=== PATIENT | male | born 1950 | race Caucasian/White ===

== ENCOUNTER 2017-06-24 07:37 | Inpatient (IN) ==
[2017-06-24] MEDS ORDERED: methylPREDNISolone 125 MG/2 ML VIAL IVP ONE (07:50)
[2017-06-24] MEDS ORDERED: ALBUTEROL SULFATE 2.5 MG/3 ML NEB ONE (07:50)
[2017-06-24] MEDS ORDERED: Sodium Chloride 0.9% 1,000 ML PRIMARY IV ONE (07:53)
--- NOTE | 2017-06-24 07:54 | EKG ---
[address] [address] Measurements Intervals [place] Rate: 102 P: 41 CT: 150 QRS: 28 QRSD: 80 T: 50 QT: 314 QTc: 373 Interpretive Statements SINUS TACHYCARDIA ABNORMAL RHYTHM ECG Compared to ECG 06/24/2017 03:25:01 Sinus rhythm no longer present Electronically Signed On 06-24-17 08:38:31 MDT by Shane Alonso MD [email or web address]
[2017-06-24 07:57] LABS: BASOPHILS # (AUTO) 0.03 10*3/UL; BASOPHILS % (AUTO) 0.3 % (0-1); EOSINOPHILS # (AUTO) 0.05 10*3/UL; EOSINOPHILS % (AUTO) 0.6 % (0-8); Hematocrit [HCT] 32.6 % (42.0-52.0); Hemoglobin [HGB] 10.2 g/dL (14.0-18.0); LYMPHOCYTES # (AUTO) 0.84 10*3/uL; MEAN CORPUSCULAR HEMOGLOBIN 27.5 PG (27-31); MEAN CORPUSCULAR HGB CONC 31.3 g/dL (33-37); MEAN CORPUSCULAR VOLUME 87.9 FL (80-90); MEAN PLATELET VOLUME 8.8 FL (7.4-12.2); MONOCYTES # (AUTO) 1.06 10*3/UL (0.3-0.8); MONOCYTES % (AUTO) 12.3 % (5-15); NEUTROPHILS # (AUTO) 6.57 10*3/UL; NEUTROPHILS % (AUTO) 76.4 % (50-80); RED BLOOD COUNT 3.71 10^6/uL (4.70-6.10)
[2017-06-24 08:03] LABS: BLOOD UREA NITROGEN 30 mg/dL (7-22); BUN/CREATININE RATIO 33.33 (6-20)
--- NOTE | 2017-06-24 08:06 | PDOC ---
General Adult HPI - General Chief Complaint: Respiratory Complaint Stated Complaint: vomiting, low sat Date Seen by Provider: 06/24/17 Time Seen by Provider: 07:52 Source: POSITIVE: Patient, EMS, skilled nursing records Exam Limitations: POSITIVE: Clinical condition Nurse's Notes Reviewed & Considered: Yes EMS Report Reviewed & Considered: Verbal - History of Present Illness Initial Comment: The patient is a 66-year-old male who is brought to the emergency department by ambulance from the [facility] with complaints of vomiting and low oxygen saturation. He was just seen in the emergency department earlier this morning after he had slid out of the chair and was complaining of left hip pain. He had some wheezes during his initial presentation and workup was completed including venous blood gas, blood cultures, lactate, chest x-ray and x-ray of his hip. The x-ray of his hip was found to be negative for fracture. He was just discharged from the hospital in [place] yesterday where he had been treated for 1 week with pneumonia and cellulitis. He is still on antibiotics for this. He was discharged back to the snf with a prescription for [place] for pain. Apparently he started having some vomiting there and his oxygen saturations went down. He was given an albuterol neb treatment there. EMS was called. When they arrived his oxygen saturations were in the 70s on oxygen. He had increased rhonchi and wheezes and was given a duo neb in route. Have you received a tetanus shot in the past 10 years?: Unknown - Patient Home Medications Home Medications: Home Medications Albuterol Neb Soln 0.083% 2.5 mg INH PRN 06/24/17 Aripiprazole 10 mg PO BID 06/24/17 Cefuroxime Axetil [Ceftin] 500 mg PO BID 06/24/17 Citalopram Hydrobromide [Citalopram HBr] 20 mg PO DAILY 06/24/17 Famotidine 20 mg PO BID 06/24/17 Furosemide [Lasix] 40 mg PO DAILY 06/24/17 Gabapentin 300 mg PO TID 06/24/17 Guaifenesin [Mucinex] 600 mg PO BID 06/24/17 HYDROcodone/APAP 5/325 Tab [[place] 5/325 Tab] 1 ea PO Q6H PRN #30 tab 06/24/17 Ipratropium/Albuterol Sulfate [Iprat-Albut 0.5-3(2.5) mg/3 ml] 3 ml IH PRN 06/24 Lactulose 10 gm PO BID 06/24/17 Lidocaine [Anecream] 30 gm TP DAILY 06/24/17 QUEtiapine Tab [SEROquel Tab] 25 mg PO BID 06/24/17 Rivaroxaban [Xarelto] 10 mg PO DAILY 06/24/17 Spironolactone 25 mg PO DAILY 06/24/17 Sulfameth/Trimeth 800/160 Tab [Bactrim DS 800/160 Tab] 1 ea PO BID 06/24/17 - Patient Allergies Allergies/Adverse Reactions: Allergies 3 Allergy/AdvReac Type Severity Reaction Status Date / Time haloperidol [From Haldol] Allergy NOT Verified 06/24/17 09:22 APPLICABLE Past Medical History - heen HEENT History: Denies History Cardiovascular History: Hypertension, DVTs Additional Cardiovasular History: DVT IN LEFT LEG X 2 Respiratory History: Pneumonia Gastrointestinal History: Denies History Genitourinary History: Other (please comment) Additional Genitourinary History: PT HAS INDWELLING CARROLL, UNSURE OF REASON Endocrine History: Denies History Musculoskeletal History: Other (please comment) Additional Musculoskeletal History: CHRONIC NECK PAIN, CHRONIC HIP PAIN Neurological History: Denies History Blood Disorders: Anemia Psychiatric History: Bi Polar Disorder, Schizophrenia History of Sexually Transmitted Diseases: No Cancer History: Denies History In Past Year Been Physically Harmed or Verbally Threatened: No History of MDRO: No History of Other Communicable Diseases: No Tobacco Use: Unknown If Ever Smoked In the Past 12 Months, Have Used or Abuse Any Substance: None Previous Surgical History: Yes Type / Date of Surgery: STATES HE HAD CERVICAL FUSION A MONTH AGO, NOTHING LISTED IN MEDICAL RECORDS FROM [facility]. RIGHT KNEE SURGERY Significant Family History: No pertinent family hx Past Medical History Reviewed: Reviewed - No Changes ROS - Limitations ROS Limitations: Clinical Condition Cardiovascular: DENIES: Chest Pain Respiratory: REPORTS: Shortness Of Breath, Wheezing Neurological: REPORTS: Confusion Gastrointestinal: REPORTS: Nausea, Vomitting Musculoskeletal: REPORTS: Other (Left hip pain) General Adult Exam - General Appearance General Appearance: POSITIVE: Other (The patient is awake however he is less responsive than he was earlier this morning. He appears chronically ill.) - HEENT HEENT: POSITIVE: Head Inspection Nml (He has some erythematous rash on his cheek and chin, he has been diagnosed with psoriasis however this also has the appearance of ringworm), Eyes Inspection Nml, Ears Inspection Nml, Nose Inspection Nml, PERRL, EOMI - Neck Neck: POSITIVE: Normal Inspection. NEGATIVE: Lymphadenopathy - Respiratory Respiratory: POSITIVE: Other (Respirations are slightly labored and he does exhibit bilateral rhonchi with expiratory wheezes) - Cardiovascular Cardiovascular: POSITIVE: Regular Rate & Rhythm, No Murmur Peripheral Pulses: Dorsalis-pedis (R): 2+, Dorsalis-pedis (L): 2+ - Abdomen Abdomen: Soft: (All Quadrants), Denies Tenderness: (All Quadrants), Distention: (All Quadrants) - Extremities Extremity: Normal ROM: (All Extremities) Additional Extremities Details: He does have significant chronic venous stasis changes in the lower extremities bilaterally with some edema bilaterally in both legs. He also has some erythema around the buttocks. - Neurological / Psychological Neurological: POSITIVE: Other (No focal neurologic deficits) General Adult Progress - Results Reviewed by me Radiology Findings: CTA of the chest attempted, suboptimal secondary to motion artifact. Lab Results Reviewed by Me: Yes CBC and BMP: 06/24/17 07:45 06/24/17 07:45 EKG Interpreted/Reviewed By Me:: Yes EKG Interpretation:: POSITIVE: Normal Sinus Rhythm, Normal Rate, Normal QRS, Normal ST/T - Patient's Progress MDM / ED Course: A repeat venous blood gas was done shortly after the patient's arrival and he was found to be slightly acidotic with pH of 7.25 down from 7.35 earlier this morning. His PCO2 had gone from the low 50s to low 60s. He was placed on Bipap. Blood cultures and lactate had just been drawn several hours ago and were not repeated. EKG was repeated and shows normal sinus rhythm with no acute ST segment changes. Repeat chest x-ray, troponin, CBC and BMP were ordered. He was given a repeat albuterol neb treatment and Solu-Medrol 125 mg IV. The patient is discussed with Dr. Mendiola. He recommended CTA and treatment with flagyl and rocephin. CTA was performed however was suboptimal secondary to motion artifact. The patient is being admitted per Dr Mendiola. - Consult Counseled: POSITIVE: Patient, RE: Lab Results, RE: Radiology Results, RE: DX Patient Care Time - Estimated PCT Patient Care Time (In Minutes): 40 Vital Signs - Recent Vital Signs Vital Signs: Vital Signs (Last 8 hours) Temp Pulse Pulse Resp BP Pulse Ox 06/24/17 08:11 99 F 99 24 152/77 99 06/24/17 08:07 96 20 06/24/17 08:06 97 20 93 - VS Reviewed Vital Signs Reviewed: Yes Discharge Clinical Impression: History of DVT (deep vein thrombosis), Pneumonia, Respiratory acidosis, COPD ( chronic obstructive pulmonary disease), Aspiration into airway Discharge Disposition: Admit to Inpatient Condition: Serious Follow Up With: HARMEET HOLLINGSWORTH [Primary Care Provider] - Date Decision to Admit to Inpatient: 06/24/17 Time Decision to Admit to Inpatient: 09:10
[2017-06-24 08:09] LABS: PLATELET MORPHOLOGY COMMENT NORMAL MORPHOLOGY (NORM); RBC MORPHOLOGY COMMENT NORMAL MORPHOLOGY (NORM); WBC MORPHOLOGY COMMENT NORMAL MORPHOLOGY (NORM)
[2017-06-24] MEDS ORDERED: metroNIDAZOLE 500mg (Premix) 500 MG/100 ML BAG IV ONE (08:21)
[2017-06-24] MEDS ORDERED: cefTRIAXone Inj 2 GM in Sodium Chloride 0.9% 100 ML IV ONE (08:21)
[2017-06-24 08:58] LABS: VENOUS PH 7.24 (7.32-7.42)
--- NOTE | 2017-06-24 09:28 | DI ---
CT CTA Chest Non-Coronary WWO,06/24/2017 8:20 AM: Clinical History: Shortness of breath and elevated d-dimer. Previous Exam: None at this facility. Findings: Likely acquired CT images are obtained through the chest following intravenous administration of 75 c c of [id number]. Images are extremely limited due to motion artifact. There is question of filling de fects within the left lower lobe pulmonary arteries and there is airspace disease within the left low er lobe. This is worrisome for pulmonary embolism. There is a small hiatal hernia noted. Impression: Probable pulmonary emboli within the lung bases bilaterally with some reactive atelectasis in the lef t lung base.
[2017-06-24 10:50] LABS: VENOUS PCO2 52.4 mmHg (45-55); VENOUS PH 7.349 (7.32-7.42)
[2017-06-24] MEDS ORDERED: LIDOCAINE W/ SODIUM BICARB 0.5 ML SYR SUBD PRN (10:53)
[2017-06-24] MEDS ORDERED: Vancomycin-PHA to Dose IV PRN (10:53)
[2017-06-24] MEDS ORDERED: ALBUTEROL SULFATE 2.5 MG/3 ML NEB SCH (11:00)
[2017-06-24] MEDS ORDERED: ALBUTEROL SULFATE 2.5 MG/3 ML NEB PRN ×2 (11:05→11:30)
[2017-06-24] MEDS ORDERED: ONDANSETRON 4 MG/2 ML VIAL IVP PRN (11:13)
--- NOTE | 2017-06-24 11:14 | PDOC ---
HPI - History of Present Illness Date of Service: 06/24/17 Chief Complaint: Vomiting and decreased oxygen saturation History of Present Illness: This is a 66 years old male with medical history significant for history of hypertension, schizoaffective disorder and recent admission to [facility] for pneumonia and cellulitis apparently was treated there and because of his weakness it was determined that he needs to continue physical therapy and maybe long-term placement in [facility] and he was admitted to [place] [facility] [facility] yesterday. Apparently he slid out of his recliner last night he was complaining from left hip pain and he was brought to the hospital. X-ray was negative for fracture he was giving Weston also some morphine and was discharged back to the [facility]. However he's was brought back to the ER from the [facility] as apparently he vomited and his saturation dropped. He was put on nonrebreather initially and then he was put on BiPAP as he is retaining CO2 he was given antibiotics and had a CT of the chest there is question of PE and was admitted. No meaningful information can be obtained from the patient himself as he is very lethargic. His brother was with him the brother said the patient had a complicated history apparently he was weak and was not doing well last November was admitted to [facility] and from there he went to [facility] and then from there to [place] and they told him that he need to have a neck surgery however he declined and went back to [facility] and had surgery of the neck there. Sounded like he had some degenerative neck disease he stayed there on rehabilitation until April was discharged from the hospital however was readmitted to [facility] for brief period of time. He stayed home for maybe 3 weeks and ended up again with pneumonia. This time they determined that he needs the fdc placement and since he doesn't have anybody there and his brother lives in [place] he was transferred here. The patient brother said that the patient is known for not taking his medications. He is not sure what medication he is supposed to be on but he knows he need to be on diuretics and the he doesn't take them as instructed. Past Medical History Medical History: 1. Hypertension. 2. The schizoaffective disorder. 3. Recent admission to [facility] for pneumonia and cellulitis. 4. Patient is on Xarelto unclear reason Surgical History: 1. Recent neck surgery. 2. Right knee replacement Family History: Reviewed an Not Pertinent Past Social History: Used to smoke, lives by himself in [place] and moved just yesterday to the fdc here in [place]. Not sure about alcohol intake. Tobacco Use: Unknown If Ever Smoked In the Past 12 Months, Have Used or Abuse Any of the Following Substance: None Medication / Allergies Home Medications: Home Medications 3 Medication Instructions Recorded Confirmed Type Albuterol Neb Soln 0.083% 2.5 mg INH PRN 06/24/17 06/24/17 History Aripiprazole 10 mg PO BID 06/24/17 06/24/17 History Cefuroxime Axetil [Ceftin] 500 mg PO BID 06/24/17 06/24/17 History Citalopram Hydrobromide 20 mg PO DAILY 06/24/17 06/24/17 History [Citalopram HBr] Famotidine 20 mg PO BID 06/24/17 06/24/17 History Furosemide [Lasix] 40 mg PO DAILY 06/24/17 06/24/17 History Gabapentin 300 mg PO TID 06/24/17 06/24/17 History Guaifenesin [Mucinex] 600 mg PO BID 06/24/17 06/24/17 History HYDROcodone/APAP 5/325 Tab [[place] 1 ea PO Q6H PRN #30 tab 06/24/17 06/24/17 Rx 5/325 Tab] Ipratropium/Albuterol Sulfate 3 ml IH PRN 06/24/17 06/24/17 History [Iprat-Albut 0.5-3(2.5) mg/3 ml] Lactulose 10 gm PO BID 06/24/17 06/24/17 History Lidocaine [Anecream] 30 gm TP DAILY 06/24/17 06/24/17 History QUEtiapine Tab [SEROquel Tab] 25 mg PO BID 06/24/17 06/24/17 History Rivaroxaban [Xarelto] 10 mg PO DAILY 06/24/17 06/24/17 History Spironolactone 25 mg PO DAILY 06/24/17 06/24/17 History Sulfameth/Trimeth 800/160 Tab 1 ea PO BID 06/24/17 06/24/17 History [Bactrim DS 800/160 Tab] Allergies/Adverse Reactions: Allergies 3 Allergy/AdvReac Type Severity Reaction Status Date / Time haloperidol [From Haldol] Allergy NOT Verified 06/24/17 10:08 APPLICABLE Review of Systems - Review of Systems ROS Unobtainable: Due to Mental Status Exam - Vitals Vital Signs: Vital Signs Temperature 97.8 F Temperature Source Temporal Artery Scan Pulse Rate [Pulse Oximeter 86 Right] Pulse Rate 99 Respiratory Rate 18 Blood Pressure [Left Radial 132/71 Artery] Blood Pressure 134/76 Pulse Ox 96 Oxygen Flow Rate 40 Oxygen Delivery Method Bi-PAP Height 5 ft 5.75 in Weight 252 lb - General General Appearance: Morbidly Obese Additional General Exam Details: Very sleepy with the opening his eyes in response to vigorous stimuli but doesn' t follow commands - Head Head Exam: Normal Inspection - Eye Eye Exam: POSITIVE: Normal Appearance - ENT ENT Exam: POSITIVE: Normal Exam - Respiratory Additional Respiratory Exam Details: Bilateral wheezing mostly on the right side here. Decreased air entry. - Cardiovascular Cardiovascular Exam: POSITIVE: RRR - GI/Abdominal GI/Abdominal Exam: POSITIVE: Normal Bowel Sounds, Non Tender, Non Distended, Soft, No Organomegaly - Rectal Rectal Exam: POSITIVE: Deferred - External Exam: POSITIVE: Deferred - Extremities Additional Extremities Exam Details: Chronic dermatitic changes noted in both legs. - Neurological Additional Neurological Exam Details: Very sleepy does not follow commands. Withdrawal response to stimuli. - Integumentary Additional Integumentary Exam Details: Chronic dermatitic changes noted in both lower extremities Results - Labs CBC and BMP: 06/24/17 07:45 06/24/17 07:45 - EKG Data -: EKG Interpreted by Me Rate: Tachycardia - EKG Data EKG Interpretation: Other (EKG shows sinus tachycardia) - Imaging Status: Report Reviewed by Me (CT chest Probable pulmonary emboli within the lung bases bilaterally with some reactive atelectasis in the left lung base.) Assessment and Plan - Patient Problems (1) Acute and chronic respiratory failure Current Visit: Yes Status: Acute Comment: He is on BiPAP now we did recheck his carbon dioxide and it is coming down. Suspect that he has a underlying COPD as he used to smoke, I think there may be evidence of pneumonia as possibly patient aspirated. I think will put him on Zosyn and vancomycin now. He is wheezing will put him on the breathing treatment and some steroid. Code(s): J96.20 - Acute and chronic respiratory failure, unspecified whether with hypoxia or hypercapnia (2) Pulmonary emboli Current Visit: Yes Status: Acute Comment: There is a question of PE on the CT, patient is on Xarelto for unknown reason the ER physician thought that he had a history of DVT and I could not find this on his note. I think will put him on Lovenox once we know when was the last time he had the Xarelto. It's possibly he is not taking his medications as prescribed based on what his brother said and that's why he ended up with a PE. Code(s): I26.99 - Other pulmonary embolism without acute cor pulmonale (3) Schizoaffective disorder Current Visit: Yes Status: Acute Comment: Once he is more awake we will restart his medications Code(s): F25.9 - Schizoaffective disorder, unspecified
[2017-06-24] MEDS: Piperacillin/Tazobactam Inj 3.375 GM in Sodium Chloride 0.9% 100 ML IV SCH ×3 (11:57→22:34)
[2017-06-24] MEDS: PANTOPRAZOLE IV 40 MG VIAL IVP SCH (11:58)
[2017-06-24] MEDS: Sodium Chloride 0.9% 1,000 ML PRIMARY IV SCH (12:27)
[2017-06-24] MEDS: ENOXAPARIN SODIUM 120 MG/0.8 ML SYRINGE SUBCUT SCH (13:54)
[2017-06-24] MEDS: methylPREDNISolone 40 MG/1 ML VIAL IVP SCH ×2 (13:54→22:34)
[2017-06-24] MEDS: IPRATROPIUM/ALBUTEROL SULFATE 3 ML NEB NEB SCH ×2 (17:00→19:40)
[2017-06-24] MEDS ORDERED: ENOXAPARIN SODIUM 120 MG/0.8 ML SYRINGE SUBCUT SCH (20:00)
[2017-06-24] MEDS: ARIPIPRAZOLE 10 MG PO SCH (20:31)
[2017-06-24] MEDS: GUAIFENESIN 600 MG TABLET PO SCH (20:31)
[2017-06-24] MEDS: QUEtiapine Tab 25 MG TAB PO SCH (20:31)
[2017-06-25] MEDS: ENOXAPARIN SODIUM 120 MG/0.8 ML SYRINGE SUBCUT SCH ×2 (01:10→13:34)
[2017-06-25] MEDS ORDERED: LORazepam 2 MG/1 ML VIAL IVP ONE ×3 (02:24→21:58)
[2017-06-25] MEDS: LORazepam 2 MG/1 ML VIAL IVP PRN ×3 (03:06→21:07)
[2017-06-25 06:30] LABS: BASOPHILS # (AUTO) 0 10*3/UL; BASOPHILS % (AUTO) 0 % (0-1); EOSINOPHILS # (AUTO) 0 10*3/UL; EOSINOPHILS % (AUTO) 0 % (0-8); Hematocrit [HCT] 32.3 % (42.0-52.0); Hemoglobin [HGB] 9.7 g/dL (14.0-18.0); LYMPHOCYTES # (AUTO) 0.44 10*3/uL; MEAN CORPUSCULAR HEMOGLOBIN 26.6 PG (27-31); MEAN CORPUSCULAR VOLUME 88.7 FL (80-90); MEAN PLATELET VOLUME 9.2 FL (7.4-12.2); MONOCYTES # (AUTO) 0.22 10*3/UL (0.3-0.8); MONOCYTES % (AUTO) 2.6 % (5-15); NEUTROPHILS # (AUTO) 7.68 10*3/UL; NEUTROPHILS % (AUTO) 91.7 % (50-80); RED BLOOD COUNT 3.64 10^6/uL (4.70-6.10)
[2017-06-25 06:47] LABS: PLATELET MORPHOLOGY COMMENT NORMAL MORPHOLOGY (NORM); RBC MORPHOLOGY COMMENT NORMAL MORPHOLOGY (NORM); WBC MORPHOLOGY COMMENT NORMAL MORPHOLOGY (NORM)
[2017-06-25] MEDS: IPRATROPIUM/ALBUTEROL SULFATE 3 ML NEB NEB SCH ×4 (06:47→19:31)
[2017-06-25 06:53] LABS: BLOOD UREA NITROGEN 34 mg/dL (7-22)
--- NOTE | 2017-06-25 08:34 | PDOC(PROG) ---
Date and Time of Service: 06/25/2017 8:33 AM Interval History: Subjective As I said in my note patient did wake up during the day was cooperative until around 10 PM he became uncooperative with the staff not following the instructions to keep his oxygen mask/cannula. I came and talked to him and he changed his mind and became cooperative with them until 1:30 AM when he started to be uncooperative I came in again there was no reasoning with him. He just doesn't want to wear his oxygen. His oxygen were dropping to the 60s and 70s. He was just uncooperative and angry. I called his brother and his daughter. His brother came and tried to reason with him however that didn't work. I did speak to his the power of employment law attorney his daughter and we made his status DO NOT RESUSCITATE which he did clearly state when he was awak. apparently he had some paperwork that's indicated that per his brother. Then we had to give him Ativan to calm him down and then we were able to put him back on the oxygen and on the BiPAP. This morning he is a lethargic would wake up in response to stimuli but he would not follow commands. We did repeat his the blood gas did show CO2 retention apparently he was taking off the BiPAP after the breathing treatment and had to put him back now since he is a retaining more CO2 and more lethargic. No meaningful information can be obtained from the patient Objective : Data - Labs CBC and BMP: 06/25/17 04:15 06/25/17 04:15 Objective : Exam - General General Appearance: Obese Additional General Exam Details: Patient is very lethargic. With open his eyes in response to stimuli does not follow commands though. - Head Head Exam: Normal Inspection - Eye Eye Exam: Normal Appearance - ENT ENT Exam: Normal Exam - Respiratory Additional Respiratory Exam Details: Bilateral wheezes heard - Cardiovascular Cardiovascular Exam: RRR - GI/Abdominal GI/Abdominal Exam: Normal Bowel Sounds, Non Tender, Non Distended, Soft, No Organomegaly - Rectal Rectal Exam: Deferred - External Exam: Deferred - Extremities Additional Extremities Exam Details: Stasis dermatitis noted in the legs. - Neurological Additional Neurological Exam Details: Very lethargic with wake up in response to the vigorous and the verbal stimuli but we go back to sleep does not follow commands. Assessment and Plan - Patient Problems (1) Acute and chronic respiratory failure Current Visit: Yes Status: Acute Comment: Yesterday he did respond to BiPAP however he became angry uncooperative and removing his oxygen cannula/ mask after waking up. As per my note we had to give him some Ativan and now he is back respiratory failure and he is back on BiPAP. We'll continue with the steroid and the antibiotics continue with Lovenox for PE. Continue breathing treatment. I elected to give him broad coverage because of his recent admission to another hospital. We put him on Vanco and Zosyn. The reason for his respiratory failure is multifactorial part of this is probably secondary to infection is question of for PE also. I suspect he also have underlying COPD. also possible underlying sleep apnea. Code(s): J96.20 - Acute and chronic respiratory failure, unspecified whether with hypoxia or hypercapnia (2) Pulmonary emboli Current Visit: Yes Status: Acute Comment: We put him on Lovenox. Code(s): I26.99 - Other pulmonary embolism without acute cor pulmonale (3) Schizoaffective disorder Current Visit: Yes Status: Acute Comment: He did take his pills last night after waking up however he's too sleepy to take any medications today. Will use Ativan as needed for agitation. The behavior from yesterday is unclear to me whether this is a result of his underlying psychiatric disorder or personality. In the past he seemed to go from hospital to hospital and at times refused treatment by physician so what happened last night may fit into being part of his personality. He did not appear to be delirious he was just uncooperative. I was unsure whether the the steroid played part in worsening his behavior so I cut back on the dosage of the steroid. Code(s): F25.9 - Schizoaffective disorder, unspecified
[2017-06-25 08:41] LABS: VENOUS PH 7.23 (7.32-7.42)
[2017-06-25] MEDS ORDERED: Vancomycin-PHA to Dose IV PRN (08:45)
[2017-06-25] MEDS ORDERED: methylPREDNISolone 40 MG/1 ML VIAL IVP SCH ×2 (09:00→21:00)
[2017-06-25] MEDS ORDERED: CITALOPRAM 20 MG TABLET PO SCH (09:00)
[2017-06-25] MEDS: Piperacillin/Tazobactam Inj 3.375 GM in Sodium Chloride 0.9% 100 ML IV SCH ×3 (09:01→20:07)
[2017-06-25] MEDS: GUAIFENESIN 600 MG TABLET PO SCH ×2 (09:36→20:07)
[2017-06-25] MEDS: ARIPIPRAZOLE 10 MG PO SCH ×2 (09:36→20:07)
[2017-06-25] MEDS: Spironolactone Tab 25 MG TAB PO SCH (09:36)
[2017-06-25] MEDS: FUROSEMIDE 40 MG TABLET PO SCH (09:36)
[2017-06-25] MEDS: QUEtiapine Tab 25 MG TAB PO SCH ×2 (09:37→20:07)
[2017-06-25] MEDS: PANTOPRAZOLE IV 40 MG VIAL IVP SCH (10:00)
[2017-06-25 11:07] LABS: VENOUS PH 7.24 (7.32-7.42)
[2017-06-25 13:37] LABS: VENOUS PH 7.24 (7.32-7.42)
[2017-06-25 18:17] LABS: VENOUS PH 7.42 (7.32-7.42)
[2017-06-25] MEDS: BUDESONIDE 0.5 MG/2 ML NEB SCH (19:32)
[2017-06-25] MEDS ORDERED: LORazepam 2 MG/1 ML VIAL IM ONE (21:35)
[2017-06-26 00:43] LABS: VENOUS PH 7.22 (7.32-7.42)
[2017-06-26] MEDS ORDERED: Vancomycin Inj 1gm vial ONE (00:43)
[2017-06-26] MEDS: ENOXAPARIN SODIUM 120 MG/0.8 ML SYRINGE SUBCUT SCH (00:44)
[2017-06-26 03:23] LABS: BASOPHILS # (AUTO) 0.01 10*3/UL; BASOPHILS % (AUTO) 0.1 % (0-1); EOSINOPHILS # (AUTO) 0 10*3/UL; EOSINOPHILS % (AUTO) 0 % (0-8); Hematocrit [HCT] 31.4 % (42.0-52.0); Hemoglobin [HGB] 9.5 g/dL (14.0-18.0); MEAN CORPUSCULAR HEMOGLOBIN 27.8 PG (27-31); MEAN CORPUSCULAR HGB CONC 30.3 g/dL (33-37); MEAN CORPUSCULAR VOLUME 91.8 FL (80-90); MEAN PLATELET VOLUME 8.6 FL (7.4-12.2); MONOCYTES # (AUTO) 0.81 10*3/UL (0.3-0.8); MONOCYTES % (AUTO) 7.2 % (5-15); NEUTROPHILS # (AUTO) 9.94 10*3/UL; RED BLOOD COUNT 3.42 10^6/uL (4.70-6.10)
[2017-06-26 03:38] LABS: BLOOD UREA NITROGEN 26 mg/dL (7-22); BUN/CREATININE RATIO 37.14 (6-20); PLATELET MORPHOLOGY COMMENT NORMAL MORPHOLOGY (NORM); RBC MORPHOLOGY COMMENT NORMAL MORPHOLOGY (NORM); SERUM ALBUMIN 3.3 g/dL (3.5-4.8); WBC MORPHOLOGY COMMENT NORMAL MORPHOLOGY (NORM)
[2017-06-26] MEDS: Piperacillin/Tazobactam Inj 3.375 GM in Sodium Chloride 0.9% 100 ML IV SCH (03:41)
[2017-06-26] MEDS: Sodium Chloride 0.9% 1,000 ML PRIMARY IV SCH (04:03)
[2017-06-26] MEDS: LORazepam 2 MG/1 ML VIAL IVP PRN ×3 (04:49→10:22)
[2017-06-26 05:40] LABS: VENOUS PH 7.19 (7.32-7.42)
[2017-06-26] MEDS: BUDESONIDE 0.5 MG/2 ML NEB SCH (06:16)
[2017-06-26] MEDS: IPRATROPIUM/ALBUTEROL SULFATE 3 ML NEB NEB SCH (06:17)
[2017-06-26 07:12] VITALS: BP 129/79; RESP 22; TEMP 97
--- NOTE | 2017-06-26 07:20 | PDOC(PROG) ---
Date and Time of Service: 06/26/2017 7:21 AM Interval History: Subjective Patient is lethargic, last night he woke up again became uncooperative violent towards the staff kicking and screaming had to give him Ativan again to calm him down. He had lots of secretions that we suctioned. Torres to put him back on the BiPAP which he seems to to tolerate. However his blood gas continued to progressively get worse. I did speak with both his daughter and his the brother. The daughter Darleen is the power of real estate attorney after discussion with her about his progressive respiratory failure we decided to put the patient on comfort care, D/C antibiotics, lovenox and IV fluid will DC the BiPAP and will put him on morphine and Ativan as needed Objective : Data - Labs CBC and BMP: 06/26/17 03:10 06/26/17 03:10 Objective : Exam - General Additional General Exam Details: Patient is very lethargic and does not follow commands barely able to open his eyes - Head Head Exam: Normal Inspection - Respiratory Respiratory Exam: Clear to Auscultation - Bilaterally Additional Respiratory Exam Details: Bilateral expiratory wheezes. - Cardiovascular Cardiovascular Exam: RRR - GI/Abdominal GI/Abdominal Exam: Normal Bowel Sounds, Non Tender, Non Distended, Soft - Rectal Rectal Exam: Deferred - External Exam: Deferred - Extremities Additional Extremities Exam Details: Stasis dermatitis noted - Neurological Additional Neurological Exam Details: Patient is very lethargic minimal spontaneous movement. Assessment and Plan - Patient Problems (1) Acute and chronic respiratory failure Current Visit: Yes Status: Acute Comment: Patient is with progressive respiratory failure unresponsive to the noninvasive ventilation and he is DO NOT RESUSCITATE DO NOT INTUBATE, likely the failure is multifactorial including aspiration and the PE plus underlying COPD exacerbation will DC per my discussion with the family treatment and put him on comfort care. Code(s): J96.20 - Acute and chronic respiratory failure, unspecified whether with hypoxia or hypercapnia
[2017-06-26] MEDS ORDERED: MORPHINE SULFATE 2 MG/1 ML IVP ONE (07:26)
[2017-06-26] MEDS ORDERED: Morphine Syringe 300mg/30ml 300 MG/30 ML PCA.SYRING IV SCH (07:30)
[2017-06-26] MEDS: Spironolactone Tab 25 MG TAB PO SCH (08:35)
[2017-06-26] MEDS: FUROSEMIDE 40 MG TABLET PO SCH (08:36)
[2017-06-26 16:33] VITALS: O2SAT 83
--- NOTE | 2017-06-27 07:58 | DCSUMMARY ---
Hospitalization Summary Admit Date: 06/24/2017 Discharge Date: 06/27/17 Hospital Course: diagnoses 1. Acute Hypercapnic respiratory failure 2. Probable aspiration pneumonia 3. Possible PE 4. Sleep apnea 5. COPD exacerbation 6. Hypertension 7. Schizoaffective disorder 8. Recent admission to [facility] for pneumonia and cellulitis 9. Obesity Hospital course This is a 66 years old male with medical history significant for history of hypertension, schizoaffective disorder and recent admission to [facility] for pneumonia and cellulitis apparently stayed there from the of this month and because of his weakness it was determined that he need to continue physical therapy maybe long-term placement in [facility] so he was admitted to [facility] the day before admission. Apparently he slid out of his recliner the night before admission and was complaining from left hip pain and was brought to the hospital for evaluation. X-ray was negative for fracture he was given [place] and also morphine and was discharged back to [facility]. However he was brought back to the ER from the [facility] as apparently he vomited and his saturation dropped. Initially he was put on nonrebreather and then switched to BiPAP as the venous blood gas showed CO2 retention. He was given antibiotics and had CT of the chest which raised possibility of PE and was admitted. When I saw him initially no meaningful information could be obtained from the patient as he was very lethargic. His brother was with him and the brother said that the patient had a complicated history. Apparently he was weak and was not doing well last November so he was admitted to [facility] and from there he went to [facility] and then from there to [place] and was told that he need to have a neck surgery however he declined to have it in [place] and went back to [facility] and had surgery of the neck there. The issue sounded to be a degenerative disc disease he stayed on rehabilitation there until April. Was discharged from the hospital however he was readmitted to [facility] for brief period of time. He stayed home maybe 3-4 weeks but ended up again in the hospital for pneumonia. This time it was determined that he needed [facility] placement and since he doesn't have anybody there and his brother lives in [place] was transferred here. The patient said that the patient is known for not taking his medication. He is not sure what medication he is supposed to be on but he knows he needs to be on a diuretic and he doesn't take them as instructed. Initially when I saw him as I said he was in respiratory failure which is probably multifactorial in etiology, thought maybe that secondary to COPD exacerbation, pneumonia maybe aspiration and possible PE. Though he was on Xarelto reason is not clear although the ER physician reported that he had a history of DVT. Since the patient is known not to take his medication I thought maybe the PEs a result of him not taking his medication so we put him on Lovenox. Few hours after the admission the patient started to wake up so we where able to take him off the BiPAP and he was cooperative with the staff however late that night he became uncooperative and angry and I came in to talk to him and after talking to him he changed his tone and said he will cooperate with the staff. However a few hours after that in the rope silica machine operator of the he became again uncooperative pulling his oxygen yelling and refusing to put his oxygen back on. I came to talk to him however there was no reasoning with him. I talked his brother to see whether he can come in and reason with him he couldn't. Patient started calling the police who came in and tried to reason with him however that did not work either. The patient initially was full code based on what the brother said. Though the brother said that there are papers indicate DO NOT RESUSCITATE but the patient at one point mentioned that he wants to be full code. But at that time when the patient woke up that night he clearly indicated he does not want to be full code. After clarifying the situation with his power of research attorney that he is DO NOT RESUSCITATE, I explained since the patient is harming himself and with his psychiatric history best is to give medication to calm him down . also explained to them that the medication to calm him down potentially can worsen respiratory failure. Because the patient was endangering himself and has a history of for schizophrenia we gave him Ativan Unfortunately patient went back into respiratory failure so we put him back on the BiPAP. Again after several maneuvering between the BiPAP and between the Vapotherm we where able to lower his CO2 down. He woke up again was angry uncooperative with staff kicking and screaming and we had to administer Ativan again. He started to retain CO2 again put him back on the BiPAP he had lots of secretions that were suctioned. He was wheezing so continued with the other medications. But this time however he continued to have progressive respiratory failure despite being on the BiPAP. Eventually I did speak with the brother and his power of research attorney daughter and inform them about the progressive respiratory failure so we decided to put the patient on comfort care and we DC'd all medications. Patient was put on IV drip morphine for comfort. The power of research attorney his daughter managed to drive her and stayed him. patient in the morning of June 27. Exam - Vitals Vital Signs: Vital Signs Temperature 97 F Temperature Source Temporal Artery Scan Pulse Rate [Apical] 82 Pulse Rate [Pulse Oximeter 82 Right] Pulse Rate 65 Respiratory Rate 22 Blood Pressure [Left Arm] 129/79 Blood Pressure [Left Radial 125/82 Artery] Blood Pressure 134/76 Pulse Ox 83 Oxygen Flow Rate 2 Oxygen Delivery Method Nasal Cannula Height 5 ft 5.75 in Weight 252 lb Patient Problems - Patient Problem List (1) Acute and chronic respiratory failure Status: Acute Code(s): J96.20 - Acute and chronic respiratory failure, unspecified whether with hypoxia or hypercapnia Category: Medical
[2017-06-27] MEDS ORDERED: QUEtiapine Tab 25 MG TAB PO SCH (09:00)
== END 2017-06-27 05:37 | disposition expired | DRG 189 ==
LOC: ER 07:37 → MED/SURG 09:40
PROVIDERS: ADMIT Internal Medicine; ATTEND Internal Medicine